=== PATIENT | female | born 1940 | race Hispanic/Latino ===

== ENCOUNTER 2019-01-13 18:10 | Emergency (ER) | payer MEDICARE ==
[2019-01-13] MEDS ORDERED: HYDROcodone/Acetaminophen 10/325 mg Tablet ONE (20:24)
[2019-01-13] MEDS ORDERED: Ketorolac Tromethamine 60 MG/2 ML VIAL ONE (20:24)
[2019-01-13] MEDS ORDERED: Dexamethasone 10 MG/ML VIAL ONE (20:24)
--- NOTE | 2019-01-13 20:30 | RAD ---
THREE VIEWS RIGHT WRIST: 01/13/19 HISTORY: Right wrist pain. Status post excision of gouty tophus. AP, lateral, and oblique views right wrist obtained. No definite evidence of right wrist fractures, subluxations or bony lesions seen. IMPRESSION: Normal three views right wrist. POS: [facility]
[2019-01-13 20:31] LABS: #Basophils 0.1 thou/uL (0.0-0.2); #Eosinphils 0.1 thou/uL (0.0-0.7); #Lymphocytes 2.3 thou/uL (1.20-3.40); #Monocytes 1.3 thou/uL (0.11-0.59); #Neutrophils 11.8 thou/uL (1.40-6.50); %Basophils 0.6 % (0.0-1.0); %Eosinophils 0.4 % (0.0-10.0); %Lymphocytes 14.6 % (21.0-51.0); %Monocytes 8.1 % (0.0-10.0); %Neutrophils 76.3 % (42.0-75.0); Mean Corpuscular HGB CONC 33.3 g/dL (32.0-36.0); Mean Corpuscular Hemoglobin 30.8 pg (27.0-31.0); Mean Corpuscular Volume 92.4 fL (78.0-98.0); Platelet Count 291 thou/uL (130-400); RBC Distribution Width 11.9 % (11.5-14.5); Red Blood Cell (RBC) Count 4.21 mill/uL (4.20-5.40); White Blood Cell (WBC) Count 15.4 thou/uL (4.8-10.8)
[2019-01-13 20:46] LABS: ALT (SGPT) 11 U/L (8-55); AST (SGOT) 14 U/L (5-34); Alkaline Phosphatase 79 U/L (40-150); Anion Gap 13 mmol/L (10-20); BUN (Urea Nitrogen) 12 mg/dL (9.8-20.1); Bilirubin, Total 0.5 mg/dL (0.2-1.2); Calc. Creatinine Clearance 0 mL/min (70-130); Calcium 9.5 mg/dL (7.8-10.44); Carbon Dioxide 22 mmol/L (23-31); Chloride 102 mmol/L (98-107); Estimated GFR-MDRD 77; Globulin 4.1 g/dL (2.4-3.5); Glucose 163 mg/dL (83-110); Protein, Total 8.1 g/dL (6.0-8.3); Sodium 133 mmol/L (136-145); Uric Acid 3.6 mg/dL (2.6-6.0)
[2019-01-13] MEDS ORDERED: Lidocaine 1% PF 5 ML VIAL ONE (21:06)
== END 2019-01-13 21:52 | disposition home or self-care (01) ==
LOC: ERS 18:10
DX: M10.9 Gout, unspecified (principal); I10 Essential (primary) hypertension; M81.0 Age-related osteoporosis without current pathological fracture; Z79.899 Other long term (current) drug therapy
CPT/HCPCS: 20605; 36415; 80053; 84550; 85025; 85652; 86140; 96372; J1100; J1885; J2001